=== PATIENT | female | born 1985 | race Caucasian/White ===

== ENCOUNTER 2018-07-26 09:41 | Emergency (ER) | payer OTHER ==
[2018-07-26 09:47] VITALS: RESP 17
[2018-07-26 10:41] LABS: BASO % 0.4 % (0.0-2.0); EOS # 0.1 K/uL (0.0-0.7); EOS % 0.9 % (0.0-4.0); HEMOGLOBIN 13.8 g/dL (11.0-16.0); MEAN CELL VOLUME 89.4 fL (81.0-99.0); MEAN CORPUSCULAR HEMOGLOBIN 30.7 pg (27.0-31.0); MEAN CORPUSCULAR HGB CONC 34.4 g/dL (33.0-37.0); MEAN PLATELET VOLUME 10.3 fL (7.2-11.7); MONO # 0.6 K/uL (0.0-0.8); MONO % 6.1 % (0.0-10.0); NEUT % 71.6 % (50.0-75.0); RBC 4.5 Mil/uL (3.80-5.20); RED CELL DISTRIBUTION WIDTH 13.6 % (11.5-14.5); WHITE BLOOD COUNT 9.7 K/uL (4.8-10.8)
[2018-07-26 10:44] LABS: HCG,QUALITATIVE URINE POSITIVE (NEGATIVE)
[2018-07-26 10:45] LABS: SQUAMOUS EPITHIAL 1 /hpf (0-5); URINE BACTERIA RARE (<OCC); URINE BILIRUBIN NEGATIVE (NEGATIVE); URINE BLOOD 3+ (NEGATIVE); URINE CLARITY Clear (Clear); URINE COLOR Straw (YELLOW); URINE GLUCOSE (UA) NORMAL (Normal); URINE LEUKOCYTE ESTERASE NEG Leu/uL (Negative); URINE PROTEIN NEGATIVE (NEGATIVE); URINE UROBILINOGEN NORMAL mg/dL (0.2-1.0)
[2018-07-26 10:57] LABS: BLOOD UREA NITROGEN 11 mg/dL (7-17); CALCIUM 9.6 mg/dl (8.6-10.4); GFR NON-AFRICAN AMERICAN > 60
[2018-07-26 11:00] LABS: ALB/GLOB RATIO 1.4 (1.0-2.1); ALBUMIN 4.8 g/dL (3.5-5.0); ALT/SGPT 13 U/L (9-52); AST/SGOT 34 U/L (14-36)
--- NOTE | 2018-07-26 11:30 | C.PDOC ---
History Of Present Illness 33 year old female who is currently 12 weeks , presents to the ED complaining of hematuria and vaginal bleeding associated with abdominal cramping for one day. Denies any back pain, n/v/d, fever, chills, chest pain, or any other associated symptoms. Reports this is her first . Reports she was following up in [place] and she has an upcoming appointment with OBGYN next week. Time Seen by Provider: 07/26/18 10:00 Chief Complaint (Nursing): Abdominal Pain History Per: Patient, Family ( ) History/Exam Limitations: no limitations Onset/Duration Of Symptoms: Days (1) Current Symptoms Are (Timing): Still Present Radiation Of Pain To:: None Quality Of Discomfort: Cramping Associated Symptoms: denies: Fever, Chills, Nausea, Vomiting Exacerbating Factors: None Alleviating Factors: None Recent travel outside of the [place]: No Past Medical History Reviewed: Historical Data, Nursing Documentation, Vital Signs Vital Signs: Last Vital Signs Temp 99 F 07/26/18 09:44 Pulse 117 H 07/26/18 09:44 Resp 17 07/26/18 09:44 BP 153/94 H 07/26/18 09:44 Pulse Ox 98 07/26/18 09:44 Primary Care Provider: FAMILY PROVIDER,NO - Medical History PMH: No Chronic Diseases Surgical History: No Surg Hx Family History: States: No Known Family Hx - Social History Hx Alcohol Use: No Hx Substance Use: No - Immunization History Hx Tetanus Toxoid Vaccination: No Hx Influenza Vaccination: No Hx Pneumococcal Vaccination: No Review Of Systems Except As Marked, All Systems Reviewed And Found Negative. Constitutional: Negative for: Fever, Chills Cardiovascular: Negative for: Chest Pain Respiratory: Negative for: Shortness of Breath Gastrointestinal: Positive for: Other (abdominal cramping ). Negative for: Nausea, Vomiting, Diarrhea Genitourinary: Positive for: Hematuria, Vaginal Bleeding Musculoskeletal: Negative for: Back Pain Physical Exam - Physical Exam Appears: Non-toxic, No Acute Distress Skin: Warm, Dry, No Rash Head: Normacephalic Eye(s): bilateral: Normal Inspection Nose: Normal Oral Mucosa: Moist Throat: No Erythema, No Exudate Neck: Normal ROM, Supple Chest: Symmetrical Cardiovascular: Rhythm Regular, No Friction Rub, No Murmur Respiratory: Normal Breath Sounds, No Rales, No Rhonchi, No Wheezing Gastrointestinal/Abdominal: Soft, No Tenderness, No Distention, No Guarding, No Rebound Back: Normal Inspection, No CVA Tenderness Extremity: Normal ROM, No Swelling Neurological/Psych: Oriented x3, Normal Speech Gait: Steady ED Course And Treatment - Laboratory Results Result Diagrams: 07/26/18 10:35 07/26/18 10:35 Lab Results: Total Bilirubin 0.8 mg/dL (0.2-1.3) 07/26/18 10:35 AST 34 U/L (14-36) 07/26/18 10:35 ALT 13 U/L (9-52) 07/26/18 10:35 Alkaline Phosphatase 63 U/L (38-126) 07/26/18 10:35 Total Protein 8.3 g/dL (6.3-8.3) 07/26/18 10:35 Albumin 4.8 g/dL (3.5-5.0) 07/26/18 10:35 Globulin 3.5 gm/dL (2.2-3.9) 07/26/18 10:35 Albumin/Globulin Ratio 1.4 (1.0-2.1) 07/26/18 10:35 Urine Color Straw (YELLOW) 07/26/18 10:35 Urine Clarity Clear (Clear) 07/26/18 10:35 Urine pH 6.0 (5.0-8.0) 07/26/18 10:35 Ur Specific [place] 1.008 (1.003-1.030) 07/26/18 10:35 Urine Protein Negative mg/dL (NEGATIVE) 07/26/18 10:35 Urine Glucose (UA) Normal mg/dL (Normal) 07/26/18 10:35 Urine Ketones Negative mg/dL (NEGATIVE) 07/26/18 10:35 Urine Blood 3+ (NEGATIVE) H 07/26/18 10:35 Urine Nitrate Negative (NEGATIVE) 07/26/18 10:35 Urine Bilirubin Negative (NEGATIVE) 07/26/18 10:35 Urine Urobilinogen Normal mg/dL (0.2-1.0) 07/26/18 10:35 Ur Leukocyte Esterase Neg Roma/uL (Negative) 07/26/18 10:35 Urine WBC (Auto) 2 /hpf (0-5) 07/26/18 10:35 Urine RBC (Auto) 207 /hpf (0-3) H 07/26/18 10:35 Ur Squamous Epith Cells 1 /hpf (0-5) 07/26/18 10:35 Urine Bacteria Rare (<OCC) 07/26/18 10:35 Urine HCG, Qual Positive (NEGATIVE) 07/26/18 10:35 Beta HCG, Quant 6345.10 mIU/ML 07/26/18 10:35 Urine HCG, Qual Positive (NEGATIVE) 07/26/18 10:35 O2 Sat by Pulse Oximetry: 98 (RA) Pulse Ox Interpretation: Normal - CT Scan/US US transvaginal Other Rad Studies (CT/US): Read By Radiologist, Radiology Report Reviewed CT/US Interpretation: Accession No. : [id number]. Patient Name / ID : SYED KAT / [id number]. Exam Date : 07/26/2018 10:55:17 ( Approved ). Study Comment : Sex / Age : F / 33Y. Creator : Lynette Azevedo MD. Dictator : Lynette Azevedo MD. Railroad Brake Operator : Business Operations Specialist : Lynette Azevedo MD. Approver2 : Report Date : 07/26/2018 12:21:47. My Comment : . Date of service: 07/26/2018. HISTORY: pelvic pain, vag bleed, 12 wk preg. COMPARISON: None available. TECHNIQUE: Real-time transabdominal pelvic ultrasound was performed. In addition a transvaginal pelvic ultrasound was necessary to better depict pelvic anatomy. FINDINGS: UTERUS: Measures 12.1 x 5.4 x 6.8 cm. Anteverted. ENDOMETRIUM: Measures 2.3 cm in diameter and appears heterogeneous. No intrauterine gestational sac evident. CERVIX: Heterogeneity at the level of the cervix, possibly debris or blood products. RIGHT OVARY: Measures 3.5 x 1.4 x 2.3 cm. Blood flow is demonstrated. 1.5 x 0.9 x 1.7 cm corpus luteal cyst. 1.8 x 1.4 x 1.3 cm follicles/cyst. LEFT OVARY: Measures 3.0 x 1.9 x 2.1 cm. Blood flow is demonstrated. FREE FLUID: No significant free fluid noted. OTHER FINDINGS: None. IMPRESSION: Thickened heterogeneous endometrium. No evidence of intrauterine gestational sac. If indeed the patient is based on serum beta HCG values, the sonographic findings represent either: Very early IUP; embryonic demise; ectopic gestation. Follow-up with serial quantitative serum beta HCG measurements and post OBGYN follow-up as clinically indicated, since ectopic gestation cannot be excluded based only on sonographic findings. Heterogeneous probable debris or blood products noted at the level of the cervix. Correlate clinically. Medical Decision Making Medical Decision Making: Plan - OB transvaginal - Bloodwork - HCG - UA Old records reviewed, No prior visits. Patient had images of the ultrasound from several weeks ago, which shows an IUP and fetus. Today's ultrasound shows no IUP which is consistent with a spontaneous . On re-exam, the patient reports improvement of symptoms, Lungs are CTA, heart is RRR, abdomen is soft, non-tender and tolerating PO well. Pt is ambulatory in the ED with steady gait. Follow up with the medical doctor within 1-2 days. Return if worsened. Disposition - Disposition Referrals: Jeanie Hammer MD [Staff Provider] - Disposition: HOME/ ROUTINE Disposition Time: 13:00 Condition: STABLE Additional Instructions: YOU MUST FOLLOW UP WITH DR. VAIBHAV HAMMER WITHIN 2-3 DAYS FOR REPEAT BETA-HCG. RETURN TO THE ED IF WORSENED. Instructions: Miscarriage (DC) Forms: [employer] (Citizen [place]) - Clinical Impression Clinical Impression: Spontaneous - PA / ASSEMBLER FOR PULLER OVER HAND / Resident Statement MD/DO has reviewed & agrees with the documentation as recorded. - Scribe Statement The provider has reviewed the documentation as recorded by the Scribrolando Peters All medical record entries made by the Scribe were at my direction and personally dictated by me. I have reviewed the chart and agree that the record accurately reflects my personal performance of the history, physical exam, medical decision making, and the department course for this patient. I have also personally directed, reviewed, and agree with the discharge instructions and disposition.
--- NOTE | 2018-07-26 12:25 | US ---
Date of service: 07/26/2018 HISTORY: pelvic pain, vag bleed, 12 wk preg COMPARISON: None available. TECHNIQUE: Real-time transabdominal pelvic ultrasound was performed. In addition a transvaginal pelvic ultrasound was necessary to better depict pelvic anatomy. FINDINGS: UTERUS: Measures 12.1 x 5.4 x 6.8 cm. Anteverted. ENDOMETRIUM: Measures 2.3 cm in diameter and appears heterogeneous. No intrauterine gestational sac evident. CERVIX: Heterogeneity at the level of the cervix, possibly debris or blood products. RIGHT OVARY: Measures 3.5 x 1.4 x 2.3 cm. Blood flow is demonstrated. 1.5 x 0.9 x 1.7 cm corpus luteal cyst. 1.8 x 1.4 x 1.3 cm follicles/cyst. LEFT OVARY: Measures 3.0 x 1.9 x 2.1 cm. Blood flow is demonstrated. FREE FLUID: No significant free fluid noted. OTHER FINDINGS: None. IMPRESSION: Thickened heterogeneous endometrium. No evidence of intrauterine gestational sac. If indeed the patient is based on serum beta HCG values, the sonographic findings represent either: Very early IUP; embryonic demise; ectopic gestation. Follow-up with serial quantitative serum beta HCG measurements and post OBGYN follow-up as clinically indicated, since ectopic gestation cannot be excluded based only on sonographic findings. Heterogeneous probable debris or blood products noted at the level of the cervix. Correlate clinically.
[2018-07-26 13:14] VITALS: BP 134/83; PULSE 105; TEMP 99.1
[2018-07-26 18:36] VITALS: O2SAT 98
== END 2018-07-26 13:11 | disposition home or self-care (01) ==
LOC: C.ER 09:41
DX: O03.9 Complete or unspecified spontaneous abortion without complication (principal)